=== PATIENT | female | born 1995 ===

== ENCOUNTER 2020-08-16 13:30 | Inpatient (IN) | payer OTHER ==
[~2020-08-16] VITALS: Ht 162.6 cm; Wt 66.7 kg
[2020-08-21] MEDS ORDERED: FOLIC ACID20 MG PO (06:07)
[2020-08-21] MEDS ORDERED: PRENATAL TABLE1 EAC1 PO (06:07)
[2020-08-21] MEDS ORDERED: VITAMIN D310 MCG/1 M PO (06:09)
[2020-08-23] MEDS ORDERED: FOLIC ACID1 MG (15:15)
[2020-08-23] MEDS ORDERED: PRENATAL VITAM1 EAC3 (15:16)
== END 2020-08-24 10:23 | disposition home or self-care (01) | DRG 788 ==
LOC: LDR 08-21 05:27 → OB/GYN 08-21 05:27
PROVIDERS: ADMIT Obstetrics & Gynecology; ATTEND Obstetrics & Gynecology
PROC: 4A1HXFZ Monitoring of Products of Conception, Cardiac Rhythm, External Approach (ICD-10-PCS; 2020-08-21)
PROC: 10D00Z1 Extraction of Products of Conception, Low, Open Approach (ICD-10-PCS; principal; 2020-08-21 16:00)
DX: O65.9 Obstructed labor due to maternal pelvic abnormality, unspecified (principal); O42.02 Full-term premature rupture of membranes, onset of labor within 24 hours of rupture; Z3A.39 39 weeks gestation of pregnancy; Z37.0 Single live birth; Z20.822 Contact with and (suspected) exposure to COVID-19